=== PATIENT | male | born 1995 ===

== ENCOUNTER 2021-06-17 17:27 | Emergency (ER) | payer OTHER ==
[2021-06-17 17:32] VITALS: BP 140/76; PULSE 75; TEMP 98.3; BMI 20.5
== END 2021-06-17 18:13 | disposition home or self-care (01) ==
LOC: JERFT 17:27
DX: H92.01 Otalgia, right ear (principal)
CPT/HCPCS: 99283-25

== ENCOUNTER 2021-07-06 15:47 | Emergency (ER) | payer OTHER ==
[2021-07-06 16:40] VITALS: BP 108/59; PULSE 69; TEMP 98.2; BMI 20.9
[2021-07-06] MEDS ORDERED: IBUPROFEN 600 MG TABLET (FP) PO ONE ×2 (17:11→17:30)
== END 2021-07-06 17:46 | disposition home or self-care (01) ==
LOC: JERFT 15:47
DX: M79.644 Pain in right finger(s) (principal)
CPT/HCPCS: 73140-TC-RT-FY; 99283-25